=== PATIENT | male | born 1995 | race African-American/Black ===

== ENCOUNTER 2021-11-29 13:37 | Emergency (ER) | payer MEDICAID, SELFPAY ==
--- NOTE | ~2021-11-29 | XR_ITS ---
EXAMINATION: XR chest 1V portable EXAM DATE: 11/29/2021 16:31 INDICATION: AMS, dizziness . TECHNIQUE: Portable AP frontal chest x-ray was obtained. There is no prior study for comparison. FINDINGS: The lungs are clear. There are no pleural effusions. Cardiac silhouette is prominent but magnified on this AP technique. There is no pneumothorax suspected. The bones and soft tissues are unremarkable. IMPRESSION: No acute cardiopulmonary findings. Reviewed, dictated and finalized at location G. CENTER DISPATCHER
--- NOTE | ~2021-11-29 | CT_ITS ---
EXAMINATION: CT brain wo con EXAM DATE: 11/29/2021 14:23 INDICATION: Altered mental status. TECHNIQUE: Spiral CT of the head was performed without contrast. Axial, coronal and sagittal images were reviewed. The dose-length product (DLP) for this examination was 605.33 mGy-cm. The exposure w as tailored according to patient size, and iterative reconstruction (ASIR) was used as additional dos e reduction technique. There is no prior study for comparison. FINDINGS: There is no acute intraparenchymal hemorrhage. No evidence of intraparenchymal brain mass lesion. No evidence of acute infarction. There is no mass effect or midline shift. The ventricles are normal in size. There are no extra-axial collections. There are no acute calvarial fractures. T he orbits are unremarkable. Soft tissue is unremarkable. The visualized sinuses and mastoid air yair ls are well aerated. Bilateral eduar bullosa. IMPRESSION: 1. Unremarkable head CT examination. Reviewed, dictated and finalized at location G. ESS PROJECT ENGINEER
[2021-11-29 13:39] VITALS: BP 125/62; PULSE 71; RESP 16; TEMP 36.3; O2SAT 98
--- NOTE | 2021-11-29 13:44 | ECG_ITS ---
Measurements Intervals Mccall Rate: 65 P: 51 AR: 199 QRS: 38 QRSD: 89 T: 40 QT: 358 QTc: 374 Interpretive Statements SINUS RHYTHM ST ELEVATION IN DIFFUSE LEADS- PROBABLY EARLY REPOLARIZATION BASELINE ARTIFACT- III, V6 BORDERLINE ECG Electronically Signed On 11-29-2021 14:16:35 MATERIALS INSPECTOR by Rosalino Addison D.O.
--- NOTE | 2021-11-29 14:29 | ED.AMS ---
HPI - Altered Mental Status General Chief Complaint: Altered Mental Status <MATT Javier Last Filed: 11/29/21 21:34> Stated Complaint: altered loc <MATT Javier Last Filed: 11/29/21 21:34> Time Seen by Provider: 11/29/21 14:02 <MATT Javier Last Filed: 11/29/21 21:34> Source: patient <MATT Javier Last Filed: 11/29/21 21:34> Mode of arrival: EMS <MATT Javier Last Filed: 11/29/21 21:34> Limitations: altered mental status <MATT Javier Last Filed: 11/29/21 21:34> History of Present Illness HPI narrative: This is a 26 year old male that presents to the ER for altered mental status. Reportedly patient was at work and went into the bathroom as he was feeling nauseous. He was in there a long time so someone went to check on him. He was splashing water on his face saying he was not feeling fell. He started vomiting. EMS was called. Given Zofran en route. Patient reports still having some nausea, a headache, and myalgias. Denies using any drugs. Denies chest pain, shortness of breath, abdominal pain, vision changes, or focal numbness or weakness. <Katerine Kirby PA-C - Last Filed: 11/29/21 21:34> Related Data Allergies/Adverse Reactions: Allergies Allergy/AdvReac Type Severity Reaction Status Date / Time No Known Allergies Allergy Verified 11/29/21 15:38 <Katerine Kirby PA-C - Last Filed: 11/29/21 21:34> Review of Systems Review of Systems: CONSTITUTIONAL: Denies fever EYES: Denies visual changes CARDIOVASCULAR: Denies chest pain RESPIRATORY: Denies dyspnea. GASTROINTESTINAL: Reports nausea and vomiting. Denies abdominal pain GENITOURINARY: Denies dysuria NEUROLOGIC: Reports headache. Denies numbness, or weakness. <MATT Javier Last Filed: 11/29/21 21:34> All systems reviewed & are unremarkable except as noted in HPI and below <Katerine Kirby PA-C - Last Filed: 11/29/21 21:34> [facility] Past Medical History Medical History: Medical History (Updated 11/29/21 @ 21:32 by Katerine Kirby PA-C) No active medical problems <Katerine Kirby PA-C - Last Filed: 11/29/21 21:34> Social History Social History: Social History (Updated 11/29/21 @ 21:25 by Katerine Kirby PA-C) Substance use: current Substance use type: marijuana <Katerine Kirby PA-C - Last Filed: 11/29/21 21:34> Exam Narrative: GENERAL: Well-appearing, well-nourished, and in no acute distress. HEAD: Normocephalic, atraumatic. EYES: PERRLA and EOMI. ENT: Nares clear, no rhinorrhea or epistaxis. Mucous membranes moist. Oropharynx without tonsillar hypertrophy exudate or other lesions. Bilateral TMs pearly gabriel non-bulging NECK: Supple. No adenopathy or masses. CHEST: Clear to auscultation. No respiratory distress. No wheezes rales or rhonchi HEART: Regular rate and rhythm. No murmur heard. Normal peripheral pulses. ABDOMEN: Soft, nontender, nondistended, normal active bowel sounds. EXTREMITIES: Normal range of motion. No edema. Strength equal in bilateral upper and lower extremities (5/5) SKIN: Warm, dry, no rash. NEURO: No focal deficits. Easily arousable. Oriented x3. Cranial nerves II through XII grossly intact PSYCH: Normal mood and affect <Katerine Kirby PA-C - Last Filed: 11/29/21 21:34> Course FURNITURE UPHOLSTERER/PA Physician Supervision For this patient encounter, I reviewed the FURNITURE UPHOLSTERER or PA documentation, treatment plan, and medical decision making <Faisal Hassan MD - Last Filed: 11/29/21 23:26> Vital Signs Vital signs: Vital Signs Temperature 97.3 F L 11/29/21 13:39 Pulse Rate 71 11/29/21 13:39 Respiratory Rate 16 11/29/21 13:39 Blood Pressure 125/62 11/29/21 13:39 Pulse Oximetry 98 11/29/21 13:39 Temperature 97.3 F L 11/29/21 13:39 Pulse Rate 84 11/29/21 22:16 Respiratory Rate 16 11/29/21 22:16 Blood Pressure 128/64 11/29/21 22:16 Pulse Oximetry 97 11/29/21 22
[2021-11-29 14:41] LABS: Basophils Percent Auto 0.1 % (0.2-1.2); Hematocrit 40.3 % (42.0-52.0); Hemoglobin 12.7 g/dL (14.0-18.0); Immature Granulocyte Absolute 0.02 K/mm3 (0.00-0.031); Immature Granulocyte Percent A 0.3 % (0-0.5); Lymphocytes Absolute Auto 0.73 K/mm3 (0.9-3.2); Lymphocytes Percent Auto 9.8 % (18.3-44.2); Mean Corpuscular HGB Conc 31.5 g/dl (32-36); Mean Corpuscular Volume 101.5 fl (80-100); Mean Platelet Volume 10.9 fl (7.4-10.4); Monocytes Absolute Auto 0.6 K/mm3 (0.1-0.6); Monocytes Percent Auto 7.4 % (2.6-8.5); Neutrophils Absolute Auto 6.1 K/mm3 (1.3-6.7); Neutrophils Percent Auto 82.4 % (45.5-73.1); Platelet Count Result 223 k/mm3 (150-375); Red Blood Count 3.97 M/mm3 (4.6-6.20); Red Cell Distribution Width 11.2 % (11.5-14.5); White Blood Count 7.4 K/mm3 (4.5-10.0)
[2021-11-29 14:54] LABS: Lipase 23 U/L (23-300)
[2021-11-29 14:55] LABS: Partial Thromboplastin Time 22.7 SECONDS (22.3-36.8); Prothrombin Time 13.4 Seconds (11.1-14.7)
[2021-11-29 14:56] LABS: Alanine Aminotransferase 25 U/L (4-50); Albumin Level 4.6 g/dL (3.5-5.1); Alkaline Phosphatase 78 U/L (38-126); Anion Gap 8 mmol/L (8-16); Aspartate Amino Transferase 28 U/L (17-59); Bilirubin,Total 0.6 mg/dL (0.2-1.3); Blood Urea Nitrogen 21 mg/dL (9-20); Carbon Dioxide 28 mmol/L (22-30); Chloride 102 mmol/L (98-107); Estimated CRCL calculation 102 ml/min; Estimated Glomerular Filt Rate > 60; Glucose 117 mg/dL (65-110); Potassium 4.7 mmol/L (3.4-5.0); Sodium 138 mmol/L (137-145)
[2021-11-29 15:08] LABS: Ethanol < 10 mg/dL (<10)
[2021-11-29 15:17] LABS: Troponin I < 0.012 ng/mL (0.000-0.034)
[2021-11-29 15:37] LABS: Add Urine Microscopic? YES; Appearance Urine Clear (Clear); Bilirubin Urine Negative (Negative); Blood Urine Negative (Negative); Color Urine Yellow (Yellow); Glucose Urine UA Negative (Negative); Ketones Urine Negative (Negative); Leukocyte Esterase Ur Negative LEU/UL (Negative); Mucus Urine Moderate /lpf; Nitrate Urine Negative (Negative); Protein Urine Negative (Negative); Specific Grav Ur 1.025 (1.001-1.035); Squamous Epithelial Cell Urine Rare /hpf (Few)
[2021-11-29] MEDS: METOCLOPRAMIDE HCL INJ 10 MG/2 ML VIAL IV PUSH (15:37)
[2021-11-29 16:04] LABS: Barbiturate Screen Urine Negative (Negative); Benzodiazepines Screen Urine Negative (Negative)
[2021-11-29 16:11] LABS: Amphetamine Screen Urine Negative (Negative); Cannabinoid Screen Urine Positive (Negative); Cocaine Screen Urine Negative (Negative); Methadone Screen Urine Negative (Negative); Opiate Screen Urine Negative (Negative); Phencyclidine Screen Urine Negative (Negative)
[2021-11-29] MEDS: LACTATED RINGERS 1,000 ML 999 ML IV CONT (17:55)
[2021-11-29 20:40] VITALS: BP 144/86; PULSE 78; RESP 16; O2SAT 99
[2021-11-29 22:16] VITALS: BP 128/64; PULSE 84; RESP 16; O2SAT 97
[2021-11-29 22:36] LABS: Influenza A QL RT-PCR Negative (Negative); Influenza B QL RT-PCR Negative (Negative); SARS-CoV-2 RNA PCR Negative
== END 2021-11-29 22:30 | disposition home or self-care (01) ==
PROVIDERS: Physician Assistant; Emergency Provider Emergency Medicine
DX: F12.10 Cannabis abuse, uncomplicated (principal); N30.00 Acute cystitis without hematuria; Z20.822 Contact with and (suspected) exposure to COVID-19; R94.31 Abnormal electrocardiogram [ECG] [EKG]
CPT/HCPCS: 36415; 70450; 71045; 80053; 80307; 81001; 83690; 84484; 85025; 85610; 85730; 87086; 87502; 93005; 96361; 96365; 96375; 99284; C9803; J0131; J2765; J7120; U0003; U0005